=== PATIENT | male | born 1985 | race American Indian/Alaskan Native ===

== ENCOUNTER 2019-09-18 19:12 | Emergency (ER) | payer SELFPAY ==
[2019-09-18] MEDS ORDERED: LIDOCAINE VISCOUS 2% 15 ML ORAL LIQD PO ONE (20:57)
[2019-09-18] MEDS ORDERED: ALUM-MAG HYDROXIDE-SIMETHICONE 200-200-20MG/5ML ORAL LIQD 30 ML PO ONE (20:57)
[2019-09-18] MEDS ORDERED: DICYCLOMINE 20 MG TAB PO ONE (20:57)
--- NOTE | 2019-09-18 21:48 | Emergency Department Report ---
ED General Adult HPI - General Chief complaint: Headache Stated complaint: HEADACHE,HEART BURN,CONGESTION Time Seen by Provider: 09/18/19 20:38 Source: patient Mode of arrival: Ambulatory Limitations: No Limitations - History of Present Illness Initial comments: Patient is a 34-year-old male presents emergency room with complaints of heartburn that began last night after eating hot wings. He states he has increased belching and feels a burning sensation after belching that goes all the way up to his throat. He states that he also has an occasional dry cough and sometimes feels mildly short of breath after the cough. He denies any shortness of breath currently. He denies any fever, nausea, vomiting, diarrhea, any other symptoms. He has not taken anything for the heartburn. Patient states that he just returned from [place] last week. He has a past medical history of HIV and he is on antivirals. He states that he is seeing an infectious disease doctor in [place] and last had labs 2 weeks ago, he states that his CD4 count is low but he does not know what it is, he states that he is on antibiotics currently as a substitute for Bactrim since he is allergic to Bactrim. He states he is a non-smoker. - Related Data Previous Rx's Medication Instructions Recorded Last Taken Type Famotidine [Pepcid] 20 mg PO BID #60 tablet 09/18/19 Unknown Rx Sucralfate [Carafate] 1 gm PO ACHS 7 Days #21 tablet 09/18/19 Unknown Rx Allergies Allergy/AdvReac Type Severity Reaction Status Date / Time sulfamethoxazole Allergy Hives Verified 09/18/19 19:21 [From Bactrim] trimethoprim [From Bactrim] Allergy Hives Verified 09/18/19 19:21 ED Review of Systems ROS: Stated complaint: HEADACHE,HEART BURN,CONGESTION Other details as noted in HPI Comment: All other systems reviewed and negative ED Past Medical Hx - Past Medical History Previous Medical History?: Yes Hx HIV: Yes - Surgical History Past Surgical History?: No - Medications Home Medications: Home Medications Medication Instructions Recorded Confirmed Last Taken Type Famotidine [Pepcid] 20 mg PO BID #60 tablet 09/18/19 Unknown Rx Sucralfate [Carafate] 1 gm PO ACHS 7 Days #21 tablet 09/18/19 Unknown Rx ED Physical Exam - General Limitations: No Limitations General appearance: alert, in no apparent distress - Head Head exam: Present: atraumatic, normocephalic - Eye Eye exam: Present: normal appearance - ENT ENT exam: Present: mucous membranes moist - Respiratory Respiratory exam: Present: normal lung sounds bilaterally. Absent: respiratory distress, wheezes, rales, rhonchi, stridor, chest wall tenderness, accessory muscle use, decreased breath sounds, prolonged expiratory - Cardiovascular Cardiovascular Exam: Present: regular rate, normal rhythm, normal heart sounds. Absent: systolic murmur, diastolic murmur, rubs, gallop - Neurological Exam Neurological exam: Present: alert, oriented X3 - Psychiatric Psychiatric exam: Present: normal affect, normal mood - Skin Skin exam: Present: warm, dry, intact ED Course Vital Signs 09/18/19 09/18/19 19:23 22:47 Temperature 98.7 F Pulse Rate 68 65 Respiratory 18 17 Rate Blood Pressure 137/94 Blood Pressure 137/99 [Right] O2 Sat by Pulse 100 97 Oximetry ED Medical Decision Making - Lab Data Result diagrams: 09/18/19 21:41 09/18/19 21:41 Lab Results 09/18/19 09/18/19 Range/Units 21:41 21:41 WBC 5.0 (4.5-11.0) K/mm3 RBC 4.16 (3.65-5.03) M/mm3 Hgb 13.1 (11.8-15.2) gm/dl Hct 39.6 (35.5-45.6) % MCV 95 H (84-94) fl MCH 31 (28-32) pg MCHC 33 (32-34) % RDW 16.2 H (13.2-15.2) % Plt Count 154 (140-440) K/mm3 Add Manual Diff Complete Total Counted 100 Seg Neuts % (Manual) 49.0 (40.0-70.0) % Band Neutrophils % 0 % Lymphocytes % (Manual) 36.0 H (13.4-35.0) % Reactive Lymphs % (Man) 0 % Monocytes % (Manual) 10.0 H (0.0-7.3) % Eosinophils % (Manual) 5.0 H (0.0-4.3) % Basophils % (Manual) 0 (0.0-1.8) % Metamyelocytes % 0 % Myelocytes % 0 % Promyelocytes % 0 % Blast Cells % 0 % Nucleated RBC % Not Reportable Seg Neutrophils # Man 2.5 (1.8-7.7) K/mm3 Band Neutrophils # 0.0 K/mm3 Lymphocytes # (Manual) 1.8 (1.2-5.4) K/mm3 Abs React Lymphs (Man) 0.0 K/mm3 Monocytes # (Manual) 0.5 (0.0-0.8) K/mm3 Eosinophils # (Manual) 0.3 (0.0-0.4) K/mm3 Basophils # (Manual) 0.0 (0.0-0.1) K/mm3 Metamyelocytes # 0.0 K/mm3 Myelocytes # 0.0 K/mm3 Promyelocytes # 0.0 K/mm3 Blast Cells # 0.0 K/mm3 WBC Morphology Not Reportable Hypersegmented Neuts Not Reportable Hyposegmented Neuts Not Reportable Hypogranular Neuts Not Reportable Smudge Cells Not Reportable Toxic Granulation Not Reportable Toxic Vacuolation Not Reportable Dohle Bodies Not Reportable Pelger-Huet Anomaly Not Reportable Aguilar Rods Not Reportable Platelet Estimate Not Reportable Clumped Platelets Not Reportable Plt Clumps, EDTA Not Reportable Large Platelets Not Reportable Giant Platelets Not Reportable Platelet Satelliting Not Reportable Plt Morphology Comment Not Reportable RBC Morphology Normal Dimorphic RBCs Not Reportable Polychromasia Not Reportable Hypochromasia Not Reportable Poikilocytosis Not Reportable Anisocytosis Not Reportable Microcytosis Not Reportable Macrocytosis Not Reportable Spherocytes Not Reportable Pappenheimer Bodies Not Reportable Sickle Cells Not Reportable Target Cells Not Reportable Tear Drop Cells Not Reportable Ovalocytes Not Reportable Helmet Cells Not Reportable [place] Bodies Not Reportable [place] Rings Not Reportable [place] Cells Not Reportable Bite Cells Not Reportable Crenated Cell Not Reportable Elliptocytes Not Reportable Acanthocytes (Spur) Not Reportable Rouleaux Not Reportable Hemoglobin C Crystals Not Reportable Schistocytes Not Reportable Malaria parasites Not Reportable Franc Bodies Not Reportable Hem Pathologist Commnt No Sodium 139 (137-145) mmol/L Potassium 4.3 (3.6-5.0) mmol/L Chloride 102.5 (98-107) mmol/L Carbon Dioxide 26 (22-30) mmol/L Anion Gap 15 mmol/L BUN 10 (9-20) mg/dL Creatinine 0.9 (0.8-1.5) mg/dL Estimated GFR > 60 ml/min BUN/Creatinine Ratio 11 % Glucose 85 (75-100) mg/dL Calcium 9.5 (8.4-10.2) mg/dL Total Bilirubin 0.20 (0.1-1.2) mg/dL AST 26 (5-40) units/L ALT 30 (7-56) units/L Alkaline Phosphatase 47 (35-129) units/L Total Protein 7.3 (6.3-8.2) g/dL Albumin 3.7 L (3.9-5) g/dL Albumin/Globulin Ratio 1.0 % - Radiology Data Radiology results: report reviewed CHEST 2 VIEWS INDICATION: cough, sob, recent travel from [place]. COMPARISON: None FINDINGS: Support devices: None. Heart: Within normal limits. Lungs/pleura: No acute air space or interstitial disease. No pneumothorax. Additional findings: None. IMPRESSION: 1. No acute findings. Signer Name: Remberto Beal MD Signed: 09/18/2019 9:43 PM Workstation Name: [id number] Transcribed By: ANGELES Dictated By: Remberto Beal MD Electronically Authenticated By: Remberto Beal MD Signed Date/Time: 09/18/192142 DD/ 41 TD/TT: - Medical Decision Making Patient is a 34-year-old male presents emergency room with complaints of heartburn that began last night after eating hot wings. He states he has increased belching and feels a burning sensation after belching that goes all the way up to his throat. He states that he also has an occasional dry cough and sometimes feels mildly short of breath after the cough. He denies any shortness of breath currently. He denies any fever, nausea, vomiting, diarrhea, any other symptoms. He has not taken anything for the heartburn. Patient states that he just returned from [place] last week. He has a past medical history of HIV and he is on antivirals. He states that he is seeing an infectious disease doctor in [place] and last had labs 2 weeks ago, he states that his CD4 count is low but he does not know what it is, he states that he is on antibiotics currently as a substitute for Bactrim since he is allergic to Bactrim. He states he is a non-smoker. Vitals are normal. No abnormality on physical examination as documented in chart. Labs are normal. Chest x-ray with no acute process. Patient given GI cocktail and symptoms completely improved and he was feeling much better. Patient given prescription for Pepcid and Carafate. advised pt please take medication as prescribed. Increase your water intake. Please follow the diet for acid reflux. Please follow-up with an infectious disease doctor. Please follow-up with a primary care doctor. Please follow-up with a GI doctor if your acid reflux does not improve. Return to the emergency room immediately for any new or worsening symptoms. - Differential Diagnosis GERD, PUD, PNA, URI, allergies, viral sydrome, esophagitis, h. pylori Critical care attestation.: If time is entered above; I have spent that time in minutes in the direct care of this critically ill patient, excluding procedure time. ED Disposition Clinical Impression: Dry cough GERD (gastroesophageal reflux disease) Qualifiers: Esophagitis presence: without esophagitis Qualified Code(s): K21.9 - Gastro- esophageal reflux disease without esophagitis Disposition: DC-01 TO HOME OR SELFCARE Is pt being admited?: No Does the pt Need Aspirin: No Condition: Stable Instructions: Gastroesophageal Reflux in Children (ED), Diet for Ulcers and Gastritis (ED) Additional Instructions: Please take medication as prescribed. Increase your water intake. Please follow the diet for acid reflux. Please follow-up with an infectious disease doctor. Please follow-up with a primary care doctor. Please follow-up with a GI doctor if your acid reflux does not improve. Return to the emergency room immediately for any new or worsening symptoms. Prescriptions: Sucralfate [Carafate] 1 gm PO ACHS 7 Days #21 tablet Famotidine [Pepcid] 20 mg PO BID #60 tablet Referrals: MIKAL REES MD [Staff Physician] - 2-3 Days [facility] [Outside] - 2-3 Days [facility] [Provider Group] - 2-3 Days Time of Disposition: 22:35 Print Language: SLOVAK
[2019-09-18 22:15] LABS: Hematocrit 39.6 % (35.5-45.6); Hemoglobin 13.1 gm/dl (11.8-15.2); Mean Corpuscular HGB Conc 33 % (32-34); Mean Corpuscular Volume 95 fl (84-94); Platelet Count 154 K/mm3 (140-440); Red Blood Count 4.16 M/mm3 (3.65-5.03); Red Cell Distribution Width 16.2 % (13.2-15.2)
[2019-09-18 22:28] LABS: Alanine Aminotransferase 30 units/L (7-56); Albumin 3.7 g/dL (3.9-5); BUN/Creatinine Ratio 11; Blood Urea Nitrogen 10 mg/dL (9-20); Calcium 9.5 mg/dL (8.4-10.2); Hemolysis Index 12
[2019-09-18 22:51] LABS: Basophils % (Manual) 0 % (0.0-1.8); RBC Morphology Normal; Total Cells Counted 100
[2019-09-18 23:22] VITALS: BP 137/99
== END 2019-09-18 22:47 | disposition home or self-care (01) ==
LOC: ED 19:12
DX: K21.9 Gastro-esophageal reflux disease without esophagitis (principal); R05 Cough; R06.02 Shortness of breath
CPT/HCPCS: 36415; 71046; 80053; 85007; 85025